=== PATIENT | male | born 1955 | race Caucasian/White ===

== ENCOUNTER 2024-01-02 10:14 | Outpatient (CLI) | payer BC, SELFPAY | END 2024-01-02 10:15 | disposition home or self-care (01) | PROVIDERS: PCP Family Medicine; Visit Provider Family Medicine | DX: Z00.00 Encounter for general adult medical examination without abnormal findings (principal); I10 Essential (primary) hypertension; E78.5 Hyperlipidemia, unspecified | CPT/HCPCS: 80048; 80061 ==

== ENCOUNTER 2024-01-23 13:34 | Outpatient (CLI) | payer BC, SELFPAY ==
--- NOTE | 2024-01-23 14:00 | CT_ITS ---
Final Report Patient: JO ARAIZA Facility:?[facility] Patient ID:?[id number] Site Patient ID:?[id number]. Site :?[id number] Study:?CT Abdomen/Pelvis UROGRAM 100CC ISOVUE 370-01/23/2024 2:21:21 PM Ordering Physician:?DR. HITCHCOCK Final Report: INDICATION: Hematuria. TECHNIQUE: CT abdomen and pelvis urogram without and with 100 cc Isovue 370 intravenous contrast. Contrast images were obtained in the nephrographic and delayed phases. COMPARISON: None. FINDINGS: KIDNEYS: The unenhanced images demonstrate bilateral punctate renal stones measuring 2 millimeters or less. No ureteral stone. The kidneys are normal in caliber and demonstrate normal uptake and excretion of IV contrast. No masses. The renal collecting systems and ureters are symmetrical, normal in caliber, and without evidence of mass or filling defect. URINARY BLADDER: The urinary bladder is normal in caliber and without evidence of mass, wall thickening, or inflammation. OTHER: Mild areas of atelectasis/scarring are present in both lung bases. No suspicious intrahepatic mass. The spleen is normal. Normal adrenal glands. Pancreas is within normal limits. Vascular calcifications. No aneurysm. Prostate is mildly prominent. Trace incidental pelvic free fluid. Sigmoid diverticulosis. No bowel obstruction. Faint layering stones within the gallbladder. No biliary obstruction. Normal appendix. Postop changes of bilateral inguinal hernia repair. No adenopathy. Mild degenerative changes at both hips with bone island in the left femoral head. IMPRESSION: 1. Punctate nonobstructing bilateral renal calculi. Normal ureters and bladder. 2. Cholelithiasis. 3. Trace amount of nonspecific pelvic free fluid. Please note that all CT scans at this facility use dose modulation, iterative reconstruction, and/or weight-based dosing when appropriate to reduce radiation dose to as low as reasonably achievable. Dictated by Elliot Lopez MD @ 01/24/2024 11:19:42 AM (Electronic Signature)
[2024-01-23 14:17] LABS: Creatinine* 0.9 mg/dL (0.5-1.5); Estimated Glomerular Filt Rate 94 ml/min
== END 2024-01-23 13:35 | disposition home or self-care (01) ==
PROVIDERS: PCP Family Medicine; Visit Provider Family Medicine
DX: R31.9 Hematuria, unspecified (principal); N20.0 Calculus of kidney; K80.20 Calculus of gallbladder without cholecystitis without obstruction
CPT/HCPCS: 36415; 74178; 82565; Q9967

== ENCOUNTER 2024-10-08 10:02 | Outpatient (CLI) | payer BC, SELFPAY | END 2024-10-08 10:03 | disposition home or self-care (01) | LOC: NFLDREF 10-12 04:29 | PROVIDERS: PCP Family Medicine; Referring Provider Family Medicine; Visit Provider Family Medicine | DX: E78.2 Mixed hyperlipidemia (principal); I10 Essential (primary) hypertension | CPT/HCPCS: 80048; 80061 ==

== ENCOUNTER 2025-04-09 11:14 | Outpatient (CLI) | payer BC, SELFPAY | END 2025-04-09 11:15 | disposition home or self-care (01) | PROVIDERS: PCP Family Medicine; Visit Provider Family Medicine | DX: E78.2 Mixed hyperlipidemia (principal); I10 Essential (primary) hypertension; Z12.5 Encounter for screening for malignant neoplasm of prostate | CPT/HCPCS: 80048; 80061; G0103 ==